=== PATIENT | male | born 1975 | race Caucasian/White ===

== ENCOUNTER 2022-04-06 12:37 | Emergency (ER) | payer OTHER ==
[~2022-04-06] VITALS: Ht 172.7 cm; Wt 56.7 kg
[2022-04-06] MEDS ORDERED: ADVIL200 M1 PO (12:54)
[2022-04-06] MEDS ORDERED: HYDROCODON-ACE1 EA11 PO (15:14)
== END 2022-04-06 15:29 | disposition home or self-care (01) ==
LOC: ED 12:37
DX: S42.021A Displaced fracture of shaft of right clavicle, initial encounter for closed fracture (principal); X58.XXXA Exposure to other specified factors, initial encounter
CPT/HCPCS: 73030; A9270